=== PATIENT | female | born 1945 | race Two or more races ===

== ENCOUNTER 2022-03-08 06:06 | Day surgery (SDC) | payer OTHER ==
[~2022-03-08] VITALS: Ht 157.5 cm; Wt 77.1 kg
[~2022-03-08 06:06] MED LIST: COZAAR100 MG PO; HYDROCHLOROTH12.5 MG PO; TOPROL XL25 MG PO
== END 2022-03-08 15:20 | disposition home or self-care (01) ==
LOC: CIR.AMB 06:06
PROVIDERS: ATTEND Obstetrics & Gynecology
DX: N84.0 Polyp of corpus uteri (principal); Z20.822 Contact with and (suspected) exposure to COVID-19; I10 Essential (primary) hypertension